=== PATIENT | male | born 1975 | race Caucasian/White ===

== ENCOUNTER 2023-10-15 09:08 | Day surgery (SDC) | payer OTHER ==
[2023-10-15] VITALS (9 sets, daily range): BP systolic 116–151; BP diastolic 61–93; PULSE 66–75; TEMP 98.1–98.3
[~2023-10-15] VITALS: Ht 170.2 cm; Wt 120.0 kg
[2023-10-15] MEDS ORDERED: BYSTOLIC10 MG PO (10:00)
[2023-10-15] MEDS ORDERED: CYMBALTA 30MG30 MG PO (10:01)
[2023-10-15] MEDS ORDERED: NORCO 325 MG-51 TAB PO (12:17)
--- NOTE | 2023-10-15 17:25 | NUR ---
1500 RETURNS TO ROOM 2 PER CART. DROWSY, AROUSES SPONTANEOUSLY. RESP UNLABORED. O2 AT 2L/NC. VITAL SIGNS OBTAINED. ABD ROUND, SOFT. LEFT ABD INCISIONS X 3 INTACE WITHOUT REDNESS OR DRIANGE. MID ABD DRESSING CLEAN DRY AND INTACT. REPORTS MODERATE DISCOMFORT. CALL LIGHT AT SIDE. AND DAUGHTER IN ROOM 1515 TOLERATES PO WATER WITHOUT NAUSEA 1527 PATIENT TOLERATES PO WATER AND SALTINE CRACKERS. REPORTS INCREASED DISCOMFORT. PO NORCO GIVEN 1528 OV TORADOL GIVEN 1530 HOB LOWERED TO 30 DEGREES. ROOM LIGHTS DIMMED 1600 DOZES. AROUSES TO VERBAL STIMULI. REPORTS INCREASED COMFORT. IN ROOM 1630 AWAKE. DENIES NAUSEA. HOB STLFCEYS17 DEGREES. 1655 PATIENT AWAKE. REPORTS SIGNIFICANT INCREASE IN COMFORT. ROOM LIGHTS ON. DISCHARGE INSTRUCTIONS REVIEWED. PATIENT AND VERBALIZE UNDERSTANDING. PATIENT EXPRESSES DESIRE TO PROCEED WITH DISCHARGE 1712 SITS ON EDGE OF BED. DRESSES WITH ASSIST FROM , THEN AMBULATES TO BATHROOM WITH STANDBY ASSIST. ADMITS TO VOIDING WITHOUT DIFFICULTY. TOLERATES ACTIVITY WITHOUT NAUSEA OR INCREASED DISCOMFORT. NO CHANGE IN ABD INCISIONS OR DRESSING FROM INITIAL ASSESSMENT
== END 2023-10-15 17:28 | disposition home or self-care (01) ==
LOC: SDCO 09:08
DX: Z12.11 Encounter for screening for malignant neoplasm of colon (principal); K43.2 Incisional hernia without obstruction or gangrene
CPT/HCPCS: C1781; J0690; J1100; J1885; J2405; J2704; J3010; J7120